=== PATIENT | male | born 1955 | race African-American/Black ===

== ENCOUNTER 2023-07-24 16:40 | Observation (INO) | payer MEDICARE, OTHER ==
[~2023-07-24 16:40] MED LIST: Iopamidol 370 76% 100 ML VIAL ONE
[2023-07-24] MEDS ORDERED: Ketorolac Tromethamine 30 MG (1 mL) VIAL ONE ×2 (17:23→21:28)
[2023-07-24] MEDS ORDERED: Morphine 4 MG/ML VIAL ONE (17:23)
[2023-07-24 17:41] LABS: #Eosinphils 0.4 10x3/uL (0.0-0.5); #Monocytes 0.5 10x3/uL (0.0-1.1); #Neutrophils 2.1 10x3/uL (1.5-8.4); %Basophils 0.6 % (0.0-2.0); %Eosinophils 7.1 % (0.0-6.0); %Monocytes 10.6 % (0.0-10.0); %Neutrophils 43.5 % (40.0-75.0); Hemoglobin 13.7 g/dL (13.5-17.5); Mean Corpuscular HGB CONC 33.4 g/dL (32.0-36.0); Mean Corpuscular Hemoglobin 30.2 pg (27.0-33.0); Mean Corpuscular Volume 90.3 fl (81.2-95.1); Mean Platelet Volume 10.1 fl (7.4-10.4); Platelet Count 191 10x3/uL (150-450); RBC Distribution Width 12.4 % (11.5-14.5); Red Blood Cell (RBC) Count 4.54 10x6/uL (4.32-5.72); White Blood Cell (WBC) Count 4.9 10x3/uL (3.5-10.5)
[2023-07-24 17:43] LABS: ALT (SGPT) 38 U/L (8-55); AST (SGOT) 49 U/L (5-34); Albumin 4.4 g/dL (3.4-4.8); Alkaline Phosphatase 55 U/L (40-110); Anion Gap 14 mmol/L (10-20); BUN (Urea Nitrogen) 12 mg/dL (8.4-25.7); Bilirubin, Total 0.6 mg/dL (0.2-1.2); Calc. Creatinine Clearance 0 mL/min (70-130); Calcium 9.4 mg/dL (7.8-10.44); Carbon Dioxide 26 mmol/L (23-31); Chloride 103 mmol/L (98-107); Estimated GFR 62; Globulin 2.3 g/dL (2.4-3.5); Glucose 93 mg/dL (80-115); Protein, Total 6.7 g/dL (5.8-8.1); Sodium 139 mmol/L (136-145)
[2023-07-24 17:46] LABS: Troponin I Less than 0.010 ng/mL (< 0.028)
[2023-07-24] MEDS ORDERED: Aspirin 81 mg Enteric Coated Tablet ONE (19:41)
[2023-07-24] MEDS ORDERED: Senokot S 8.6-50 MG TAB PO PRN (20:18)
[2023-07-24] MEDS ORDERED: Guaifenesin DM 100-10/5 ML UDCUP PO PRN (20:18)
[2023-07-24] MEDS ORDERED: Ondansetron PF 4 MG/2 ML Vial IVP PRN (20:18)
[2023-07-24] MEDS ORDERED: Calcium Carbonate 500 MG ChewTAB PO PRN (20:18)
[2023-07-24] MEDS ORDERED: Amlodipine 5 MG TAB ONE (21:28)
[2023-07-24] MEDS ORDERED: predniSONE 20 MG TAB ONE (21:28)
[2023-07-24] MEDS: predniSONE 20 MG TAB PO SCH (21:34)
[2023-07-24] MEDS: Amlodipine 5 MG TAB PO SCH (21:34)
[2023-07-24] MEDS: Ketorolac Tromethamine 30 MG (1 mL) VIAL IVP SCH (21:35)
[2023-07-24] MEDS ORDERED: Gabapentin 300 MG CAP ONE (21:48)
[2023-07-24] MEDS: Gabapentin 300 MG CAP PO SCH (21:51)
[2023-07-24] MEDS: Lidocaine 4% Patch TD SCH (22:02)
[2023-07-24] MEDS: Atorvastatin Calcium 20 MG TAB PO SCH (22:02)
[2023-07-24 22:23] LABS: Troponin I Less than 0.010 ng/mL (< 0.028)
[2023-07-25] MEDS ORDERED: traMADol HCl 50 MG TAB ONE (01:44)
[2023-07-25] MEDS: traMADol HCl 50 MG TAB PO PRN (01:48)
[2023-07-25] MEDS ORDERED: Morphine 2 MG/ML VIAL ONE (03:02)
[2023-07-25 04:38] LABS: CRP (Inflammatory) 1.13 mg/dL (= or < 0.5); Cardiac Risk 4.3 (Less than 4.5)
[2023-07-25 04:43] LABS: Troponin I 0.012 ng/mL (< 0.028)
[2023-07-25] MEDS: Lactated Ringer's 1,000 ML IV SCH ×2 (05:55→06:56)
[2023-07-25] MEDS: Lisinopril 2.5 MG TAB PO SCH (09:02)
[2023-07-25] MEDS: predniSONE 20 MG TAB PO SCH (09:02)
[2023-07-25] MEDS: Enoxaparin 40 MG (0.4 mL) SYRINGE SC SCH (09:03)
[2023-07-25] MEDS: LIDOCAINE Patch Removal TOP SCH (09:04)
[2023-07-25] MEDS: Ketorolac Tromethamine 30 MG (1 mL) VIAL IVP SCH (10:00)
[2023-07-25 11:10] VITALS: BMI 30.7
[2023-07-25 14:46] LABS: ALT (SGPT) 38 U/L (8-55); AST (SGOT) 47 U/L (5-34); Albumin 4.1 g/dL (3.4-4.8); Alkaline Phosphatase 49 U/L (40-110); Anion Gap 11 mmol/L (10-20); BUN (Urea Nitrogen) 13 mg/dL (8.4-25.7); Bilirubin, Total 0.5 mg/dL (0.2-1.2); Calc. Creatinine Clearance 80 mL/min (70-130); Calcium 9.1 mg/dL (7.8-10.44); Carbon Dioxide 25 mmol/L (23-31); Chloride 103 mmol/L (98-107); Estimated GFR 63; Globulin 2.5 g/dL (2.4-3.5); Glucose 147 mg/dL (80-115); Potassium 4.3 mmol/L (3.5-5.1); Protein, Total 6.6 g/dL (5.8-8.1); Sodium 135 mmol/L (136-145)
[2023-07-25] MEDS: Acetaminophen 325 MG TAB PO PRN (15:04)
[2023-07-26 04:22] LABS: ALT (SGPT) 37 U/L (8-55); AST (SGOT) 37 U/L (5-34); Albumin 3.7 g/dL (3.4-4.8); Alkaline Phosphatase 44 U/L (40-110); Anion Gap 11 mmol/L (10-20); BUN (Urea Nitrogen) 14 mg/dL (8.4-25.7); Bilirubin, Total 0.5 mg/dL (0.2-1.2); CK (CPK) 536 U/L (30-200); Calc. Creatinine Clearance 96 mL/min (70-130); Calcium 8.7 mg/dL (7.8-10.44); Carbon Dioxide 24 mmol/L (23-31); Chloride 107 mmol/L (98-107); Estimated GFR 78; Globulin 2.1 g/dL (2.4-3.5); Glucose 110 mg/dL (80-115); Potassium 3.5 mmol/L (3.5-5.1); Protein, Total 5.8 g/dL (5.8-8.1); Sodium 138 mmol/L (136-145)
[2023-07-26 13:14] VITALS: TEMP 98.9
[2023-07-26 13:16] VITALS: BP 163/101
== END 2023-07-26 16:42 | disposition home or self-care (01) ==
LOC: CSHERS 16:40 → CSHERHOLD 20:25 → CSHTELE 07-25 08:49
PROVIDERS: ADMIT Student in an Organized Health Care Education/Training Program; ATTEND Nurse Practitioner Acute Care
DX: R07.9 Chest pain, unspecified (principal); I10 Essential (primary) hypertension; E78.5 Hyperlipidemia, unspecified; M54.10 Radiculopathy, site unspecified; M54.6 Pain in thoracic spine; M54.50 Low back pain, unspecified; G89.29 Other chronic pain; Z90.89 Acquired absence of other organs; Z79.899 Other long term (current) drug therapy
CPT/HCPCS: 70450; 70551; 71045; 71275; 72141; 74174; 80053 ×3; 80061; 82550 ×2; 82962; 84484 ×3; 85025; 86140 ×2; 93005; 96372 ×2; 96376; 97530; G0378 ×4; 36415; 36416; J1650; J1885; J2270; J2272; J7120; J7512; Q9967